=== PATIENT | female | born 1990 | race Caucasian/White ===

== ENCOUNTER 2025-08-11 20:54 | Inpatient (IN) ==
[2025-08-11] MEDS: OPTIRAY 320 125ml IV ONE (21:40)
[2025-08-11 21:42] LABS: Hematocrit (blood only) 33.3 % (37.0-47.0); Hemoglobin 10.8 g/dl (12.0-16.0); Immature Granulocytes # (auto) 0.04 K/uL (0.01-0.20); Immature Granulocytes % (auto) 0.4 %; Mean Corpuscular Hemoglobin 24.8 pg (25.0-34.0); Mean Corpuscular Volume 76.4 fL (80.0-100.0); Platelet Count 356 K/uL (130-400); RDW Standard Deviation 42.8 fL (36.4-46.3); Red Blood Count 4.36 M/uL (4.20-5.40); White Blood Count 10.43 K/ul (4.8-10.8)
--- NOTE | 2025-08-11 21:59 | CT Scan Report ---
Exam(s): CT HEAD Without Contrast EXAM: CT Head Without Intravenous Contrast CLINICAL HISTORY: neuro deficit, acute stroke suspected. TECHNIQUE: Axial computed tomography images of the head/brain without intravenous contrast. CTDI is 37 mGy and DLP is 546 mGy-cm. Automated exposure control was utilized for the study. A dose lowering technique was utilized adhering to the principles of ALARA. COMPARISON: No relevant prior studies available. FINDINGS: Brain: No intracranial hemorrhage. No significant mass effect. No cortical infarct. No significant white matter disease. Ventricles: Unremarkable. No ventriculomegaly. Bones/joints: Unremarkable. No acute fracture. Soft tissues: Unremarkable. Sinuses: Unremarkable as visualized. No acute sinusitis. Mastoid air cells: Unremarkable as visualized. No mastoid effusion. IMPRESSION: No acute intracranial process identified. Communications: Call Doctor Stroke Electronically signed by: Medardo Sung MD 08/11/25 21:58 PM
[2025-08-11 22:01] LABS: Alanine Aminotransferase 13 U/L (7-52); Albumin Globulin Ratio 1.3 (0.9-2); Alkaline Phosphatase 39 U/L (34-104); Anion Gap 7 (3-11); Bilirubin,Total 0.3 mg/dl (0.2-1.0); Blood Urea Nitrogen 17 mg/dl (6-23); Calcium 8.8 mg/dl (8.6-10.3); Carbon Dioxide 25 mmol/L (21-32); Chloride 108 mmol/L (98-107); Creatinine Clr Calc Pharmacy 87.6 ml/min; Globulin 2.9 gm/dl (2.5-4.0); Glucose 85 mg/dl (70-99(Fasting)); Magnesium 2.0 mg/dl (1.7-2.4); Potassium 3.2 mmol/L (3.5-5.1); Sodium 140 mmol/L (136-145); Total Protein 6.8 gm/dl (6.0-8.3)
--- NOTE | 2025-08-11 22:01 | CT Scan Report ---
Exam(s): CTA HEAD With Contrast IV Amt: 115 ml optiray 320 EXAM: CT Angiography Head With Intravenous Contrast CLINICAL HISTORY: neuro deficit, acute stroke suspected. TECHNIQUE: Axial computed tomographic angiography images of the head with intravenous contrast. CTDI is 37 mGy and DLP is 546 mGy-cm. Automated exposure control was utilized for the study. A dose lowering technique was utilized adhering to the principles of ALARA. MIP reconstructed images were created and reviewed. CONTRAST: Patient received 115 ml optiray 320 of IV contrast COMPARISON: No relevant prior studies available. FINDINGS: Limitations: There is motion artifact, which degrades image quality on multiple image slices. Right internal carotid artery: No acute findings. Intracranial segment is patent with no significant stenosis. No aneurysm. Right anterior cerebral artery: Unremarkable. No occlusion or significant stenosis. No aneurysm. Right middle cerebral artery: Unremarkable. No occlusion or significant stenosis. No aneurysm. Right posterior cerebral artery: Incidental right posterior communicating artery identified. The right posterior cerebral artery is patent. No occlusion or significant stenosis. No aneurysm. Right vertebral artery: Unremarkable as visualized. Left internal carotid artery: No acute findings. Intracranial segment is patent with no significant stenosis. No aneurysm. Left anterior cerebral artery: Unremarkable. No occlusion or significant stenosis. No aneurysm. Left middle cerebral artery: Unremarkable. No occlusion or significant stenosis. No aneurysm. Left posterior cerebral artery: There is a origin of the left posterior cerebral artery via the left posterior communicating artery. The left posterior cerebral artery is patent. No occlusion or significant stenosis. No aneurysm. Left vertebral artery: Unremarkable as visualized. Basilar artery: Unremarkable. No occlusion or significant stenosis. No aneurysm. Brain: No abnormal parenchymal enhancement identified. IMPRESSION: Accounting for mild motion artifact, negative intracranial CTA examination. Communications: Call Doctor Stroke Electronically signed by: Medardo Sung MD 08/11/25 22:00 PM
--- NOTE | 2025-08-11 22:04 | CT Scan Report ---
Exam(s): CTA NECK With Contrast IV Amt: 115 ml optiray 320 EXAM: CT Angiography Neck With Intravenous Contrast CLINICAL HISTORY: neuro deficit, acute stroke suspected. TECHNIQUE: Routine carotid CT angiography protocol was performed with intravenous contrast. NASCET criteria using the distal ICAs for comparison were used for evaluation of stenoses. CTDI is 36 mGy and DLP is 546 mGy-cm. Automated exposure control was utilized for the study. A dose lowering technique was utilized adhering to the principles of ALARA. MIP reconstructed images were created and reviewed. CONTRAST: Patient received 115 ml optiray 320 of IV contrast COMPARISON: None. FINDINGS: VASCULATURE: Right common carotid artery: Unremarkable. No occlusion or significant stenosis. No dissection. Right internal carotid artery: Unremarkable. Extracranial segment is patent with no occlusion or significant stenosis. No dissection. Right external carotid artery: Unremarkable. No occlusion. Right vertebral artery: The right vertebral artery is minimally dominant in size. No focal stenosis, dissection or occlusion. Left common carotid artery: Unremarkable. No occlusion or significant stenosis. No dissection. Left internal carotid artery: Unremarkable. Extracranial segment is patent with no occlusion or significant stenosis. No dissection. Left external carotid artery: Unremarkable. No occlusion. Left vertebral artery: Unremarkable. No occlusion or significant stenosis. No dissection. Brachiocephalic and subclavian arteries: There is a normal branching pattern of the proximal great vessels. No ostial stenosis or occlusion. Aorta: The aortic arch is patent. No dissection or aneurysm. NECK: Bones/joints: Incidental posterior surgical hardware involving the thoracic spine from T3 inferiorly. No acute fracture. Soft tissues: Unremarkable. Lung apices: Clear. CAROTID STENOSIS REFERENCE USING NASCET CRITERIA: % ICA stenosis = (1 - narrowest ICA diameter/diameter of distal cervical ICA) x 100. Mild - <50% stenosis. Moderate - 50-69% stenosis. Severe - 70-94% stenosis. Near occlusion - 95-99% stenosis. Occluded - 100% stenosis. IMPRESSION: Negative cervical CTA examination. Communications: Call Doctor Stroke Electronically signed by: Medardo Sung MD 08/11/25 22:03 PM
[2025-08-11 22:12] LABS: INR 1.0 (0.9-1.1); Partial Thromboplastin Time 27 Seconds (21-31); Prothrombin Time 10.9 Seconds (9.0-12.0)
[2025-08-11 23:17] LABS: Influenza A virus by PCR Negative (Neg); Influenza B virus by PCR Negative (Neg); SARS CoV2 RNA(COVID-19) Ceph NEGATIVE (Negative)
--- NOTE | 2025-08-11 23:17 | Emergency Department Note ---
History of Present Illness General Chief complaint: Neuro Symptoms/Deficit Stated complaint: RT SIDE NUMBNESS, PAIN, CONCERN ABOUT STROKE Time Seen by Provider: 08/11/25 21:11 History of Present Illness Provider complaint: Right-sided weakness numbness Maximum Pain Intensity: 6 34-year-old female presents emergency department for right-sided weakness and numbness. Patient states that she started having a headache 1 hour ago and started getting weakness and numbness in her right side. She reports right- sided chest pain. No difficulty breathing. No chance of . 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 Home Medications Medication Instructions Recorded Confirmed Type atomoxetine 40 mg capsule 40 mg PO DAILY 08/11/25 08/11/25 History Allergies Allergy/AdvReac Type Severity Reaction Status Date / Time metoclopramide [From Reglan] AdvReac Intermediate HYPERACTIVE Verified 08/11/25 22:34 Past Med/Surg History Problem List (Updated 08/11/25 @ 23:20 by Joni Portillo MD) Brain TIA (Acute) Medical History No pertinent family history No pertinent past medical history Surgical History No pertinent past surgical history Social History Smoking Status: Current every day smoker Tobacco Type: Cigarettes Preferred Language: [place] Feels Safe at Home: Yes Physical Exam Vital Signs Vital Signs - 24 hr 08/11/25 20:57 08/11/25 21:21 08/11/25 21:52 Temperature 36.5 C Temperature Source Temporal Artery Scan Pulse Rate 83 81 Pulse Rate [Apical] Pulse Rate from SpO2 Sensor Pulse Rhythm [Apical] Pulse Strength [Apical] Respiratory Rate 18 Respiratory Effort / Characteristics Non-Labored Spontaneous Respiratory Depth Normal Respiratory Pattern Regular Blood Pressure 129/84 Blood Pressure [Right Arm] Blood Pressure Mean 99 Blood Pressure Mean [Right Arm] Blood Pressure Position Sitting Blood Pressure Position [Right Arm] Pulse Oximetry 96 99 Oxygen Delivery Method Room Air Room Air Sepsis Recent Fever Within 48 Hours No Sepsis New/Unexplained Change in Mental Status N/A Sepsis Action Taken by Nursing No Action Required 08/11/25 21:52 08/11/25 22:03 08/11/25 22:15 Temperature Temperature Source Pulse Rate 85 73 Pulse Rate [Apical] 88 Pulse Rate from SpO2 Sensor 73 Pulse Rhythm [Apical] Regular Pulse Strength [Apical] Normal Respiratory Rate 22 19 15 Respiratory Effort / Characteristics Non-Labored Spontaneous Respiratory Depth Normal Respiratory Pattern Regular Blood Pressure 159/120 H 134/90 Blood Pressure [Right Arm] 155/94 H Blood Pressure Mean 133 111 Blood Pressure Mean [Right Arm] 114 Blood Pressure Position Blood Pressure Position [Right Arm] Lying Pulse Oximetry 98 97 98 Oxygen Delivery Method Room Air Sepsis Recent Fever Within 48 Hours Sepsis New/Unexplained Change in Mental Status Sepsis Action Taken by Nursing 08/11/25 22:30 Temperature Temperature Source Pulse Rate 71 Pulse Rate [Apical] Pulse Rate from SpO2 Sensor 72 Pulse Rhythm [Apical] Pulse Strength [Apical] Respiratory Rate 16 Respiratory Effort / Characteristics Respiratory Depth Respiratory Pattern Blood Pressure 135/85 Blood Pressure [Right Arm] Blood Pressure Mean 105 Blood Pressure Mean [Right Arm] Blood Pressure Position Blood Pressure Position [Right Arm] Pulse Oximetry 99 Oxygen Delivery Method Sepsis Recent Fever Within 48 Hours Sepsis New/Unexplained Change in Mental Status Sepsis Action Taken by Nursing Physical Exam GENERAL: oriented to person, place, and time. appears well-developed and well- nourished. HENT: Exam performed. - Head: Normocephalic and atraumatic. EYES: Conjunctivae and EOM are normal. Right eye exhibits no discharge. Left eye exhibits no discharge. No scleral icterus. NECK: Normal range of motion. Neck supple. No JVD present. CV: Normal rate, regular rhythm, normal heart sounds and intact distal pulses. There is no peripheral edema. Palpable radial pulses bue. PULM/CHEST: Effort normal and breath sounds normal. No respiratory distress. No stridor. no wheezes. no rales. ABD: The abdomen is soft. There is no tenderness. NEURO: NIHSS: 3 (6b:1, 7:1, 8:1) Course Course 2110: The patient was evaluated in room B7. A complete history and physical exam was performed Cardiac monitoring: An order was placed for continuous cardiac monitoring. The monitor shows a rate of 70 with sinus rhythm interpreted by oh Code stroke: The patient. 2204: Dr. Randle evaluating patient on telestroke cart. Received call from radiology CT head CT angio head negative. CT angio neck appears negative but formal report is pending. 2211: Vital signs stable. Patient evaluated by Dr. Jer Mendoza telestroke. He states patient is not a TNKase candidate. He recommends MRI for the patient that can be done on the inpatient unit. Patient is in agreement to stay and be admitted for further workup and neurology evaluation. Administered Medications Discontinued Medications Ioversol (Optiray 320 125ml) 115 ml IV ONCE ONE Stop: 08/11/25 21:41 Last Admin: 08/11/25 21:40 Dose: 115 ml Documented By: OTTO Medical Decision Making Laboratory Data Attestation: I reviewed the patient's lab results. 08/11/25 21:25 08/11/25 21:25 Lab Results 08/11/25 08/11/25 08/11/25 Range/Units 21:25 21:33 22:28 WBC 10.43 (4.8-10.8) K/ul RBC 4.36 (4.20-5.40) M/uL Hgb 10.8 L (12.0-16.0) g/dl POC Hgb 12.2 (12.0-16.0) g/dl Hct 33.3 L (37.0-47.0) % POC Hct 36 L (37-47) % MCV 76.4 L (80.0-100.0) fL MCH 24.8 L (25.0-34.0) pg MCHC 32.4 (32.0-36.0) g/dL RDW Std Deviation 42.8 (36.4-46.3) fL RDW Coeff of Ximena 15.4 H (11.5-14.5) % Plt Count 356 (130-400) K/uL MPV 9.2 L (9.4-12.4) fL Immature Gran % (Auto) 0.4 % Neut % (Auto) 67.8 % Lymph % (Auto) 24.0 % [place] % (Auto) 6.0 % Eos % (Auto) 1.3 % Baso % (Auto) 0.5 % Neut # (Auto) 7.07 H (1.40-6.50) K/uL Lymph # (Auto) 2.50 (1.20-3.40) K/uL [place] # (Auto) 0.63 H (0.11-0.59) K/uL Eos # (Auto) 0.14 (0.00-0.50) K/uL Baso # (Auto) 0.05 (0.00-0.20) K/uL Immature Gran # (Auto) 0.04 (0.01-0.20) K/uL PT 10.9 (9.0-12.0) Seconds INR 1.0 (0.9-1.1) APTT 27 (21-31) Seconds PTT Ratio 1.0 POC Sodium 141 (135-144) mmol/L Sodium 140 (136-145) mmol/L POC Potassium 3.2 L (3.3-5.0) mmol/L Potassium 3.2 L (3.5-5.1) mmol/L POC Chloride 108 (101-112) mmol/L Chloride 108 H (98-107) mmol/L Carbon Dioxide 25 (21-32) mmol/L POC Total CO2 23 L (24-31) mmol/L Anion Gap 7 (3-11) POC Anion Gap 15.0 L (16-25) mmol/L POC BUN 17 (7-18) mg/dl BUN 17 (6-23) mg/dl Creatinine 0.92 (0.6-1.2) mg/dl POC Creatinine 1.0 (0.6-1.3) mg/dl Est Cr Clr Drug Dosing 87.6 ml/min eGFR 82.76 BUN/Creatinine Ratio 18.5 (10-20) Glucose 85 (70-99(Fasting)) mg/dl POC Glucose (other) 87 (70-99) mg/dl Calcium 8.8 (8.6-10.3) mg/dl POC Ioniz Calcium Edilson 1.18 (1.12-1.32) mmol/l Magnesium 2.0 (1.7-2.4) mg/dl Total Bilirubin 0.3 (0.2-1.0) mg/dl AST 16 (13-39) U/L ALT 13 (7-52) U/L Alkaline Phosphatase 39 (34-104) U/L Troponin I High Sens < 2.3 (0-14) pg/ml Total Protein 6.8 (6.0-8.3) gm/dl Albumin 3.9 (3.4-5.0) gm/dl Globulin 2.9 (2.5-4.0) gm/dl Albumin/Globulin Ratio 1.3 (0.9-2) HCG, Quant < 1 mIU/ml Ethyl Alcohol mg/dL < 10.0 (<10.0) mg/dl SARS-CoV-2 (PCR) (Negative) Influenza Type A (PCR) (Neg) Influenza Type B (PCR) (Neg) RSV (RT-PCR) (Neg) 08/11/25 Range/Units 22:30 WBC (4.8-10.8) K/ul RBC (4.20-5.40) M/uL Hgb (12.0-16.0) g/dl POC Hgb (12.0-16.0) g/dl Hct (37.0-47.0) % POC Hct (37-47) % MCV (80.0-100.0) fL MCH (25.0-34.0) pg MCHC (32.0-36.0) g/dL RDW Std Deviation (36.4-46.3) fL RDW Coeff of Ximena (11.5-14.5) % Plt Count (130-400) K/uL MPV (9.4-12.4) fL Immature Gran % (Auto) % Neut % (Auto) % Lymph % (Auto) % [place] % (Auto) % Eos % (Auto) % Baso % (Auto) % Neut # (Auto) (1.40-6.50) K/uL Lymph # (Auto) (1.20-3.40) K/uL [place] # (Auto) (0.11-0.59) K/uL Eos # (Auto) (0.00-0.50) K/uL Baso # (Auto) (0.00-0.20) K/uL Immature Gran # (Auto) (0.01-0.20) K/uL PT (9.0-12.0) Seconds INR (0.9-1.1) APTT (21-31) Seconds PTT Ratio POC Sodium (135-144) mmol/L Sodium (136-145) mmol/L POC Potassium (3.3-5.0) mmol/L Potassium (3.5-5.1) mmol/L POC Chloride (101-112) mmol/L Chloride (98-107) mmol/L Carbon Dioxide (21-32) mmol/L POC Total CO2 (24-31) mmol/L Anion Gap (3-11) POC Anion Gap (16-25) mmol/L POC BUN (7-18) mg/dl BUN (6-23) mg/dl Creatinine (0.6-1.2) mg/dl POC Creatinine (0.6-1.3) mg/dl Est Cr Clr Drug Dosing ml/min eGFR BUN/Creatinine Ratio (10-20) Glucose (70-99(Fasting)) mg/dl POC Glucose (other) (70-99) mg/dl Calcium (8.6-10.3) mg/dl POC Ioniz Calcium Edilson (1.12-1.32) mmol/l Magnesium (1.7-2.4) mg/dl Total Bilirubin (0.2-1.0) mg/dl AST (13-39) U/L ALT (7-52) U/L Alkaline Phosphatase (34-104) U/L Troponin I High Sens (0-14) pg/ml Total Protein (6.0-8.3) gm/dl Albumin (3.4-5.0) gm/dl Globulin (2.5-4.0) gm/dl Albumin/Globulin Ratio (0.9-2) HCG, Quant mIU/ml Ethyl Alcohol mg/dL (<10.0) mg/dl SARS-CoV-2 (PCR) NEGATIVE (Negative) Influenza Type A (PCR) Negative (Neg) Influenza Type B (PCR) Negative (Neg) RSV (RT-PCR) Negative (Neg) Imaging Data Radiologist's Impression: Head CT 08/11/25 21:22 CR Exam(s): CT HEAD Without Contrast EXAM: CT Head Without Intravenous Contrast CLINICAL HISTORY: neuro deficit, acute stroke suspected. TECHNIQUE: Axial computed tomography images of the head/brain without intravenous contrast. CTDI is 37 mGy and DLP is 546 mGy-cm. Automated exposure control was utilized for the study. A dose lowering technique was utilized adhering to the principles of ALARA. COMPARISON: No relevant prior studies available. FINDINGS: Brain: No intracranial hemorrhage. No significant mass effect. No cortical infarct. No significant white matter disease. Ventricles: Unremarkable. No ventriculomegaly. Bones/joints: Unremarkable. No acute fracture. Soft tissues: Unremarkable. Sinuses: Unremarkable as visualized. No acute sinusitis. Mastoid air cells: Unremarkable as visualized. No mastoid effusion. IMPRESSION: No acute intracranial process identified. Communications: Call Doctor Stroke Electronically signed by: Medardo Sung MD 08/11/25 21:58 PM Head CTA 08/11/25 21:22 CR Exam(s): CTA HEAD With Contrast IV Amt: 115 ml optiray 320 EXAM: CT Angiography Head With Intravenous Contrast CLINICAL HISTORY: neuro deficit, acute stroke suspected. TECHNIQUE: Axial computed tomographic angiography images of the head with intravenous contrast. CTDI is 37 mGy and DLP is 546 mGy-cm. Automated exposure control was utilized for the study. A dose lowering technique was utilized adhering to the principles of ALARA. MIP reconstructed images were created and reviewed. CONTRAST: Patient received 115 ml optiray 320 of IV contrast COMPARISON: No relevant prior studies available. FINDINGS: Limitations: There is motion artifact, which degrades image quality on multiple image slices. Right internal carotid artery: No acute findings. Intracranial segment is patent with no significant stenosis. No aneurysm. Right anterior cerebral artery: Unremarkable. No occlusion or significant stenosis. No aneurysm. Right middle cerebral artery: Unremarkable. No occlusion or significant stenosis. No aneurysm. Right posterior cerebral artery: Incidental right posterior communicating artery identified. The right posterior cerebral artery is patent. No occlusion or significant stenosis. No aneurysm. Right vertebral artery: Unremarkable as visualized. Left internal carotid artery: No acute findings. Intracranial segment is patent with no significant stenosis. No aneurysm. Left anterior cerebral artery: Unremarkable. No occlusion or significant stenosis. No aneurysm. Left middle cerebral artery: Unremarkable. No occlusion or significant stenosis. No aneurysm. Left posterior cerebral artery: There is a origin of the left posterior cerebral artery via the left posterior communicating artery. The left posterior cerebral artery is patent. No occlusion or significant stenosis. No aneurysm. Left vertebral artery: Unremarkable as visualized. Basilar artery: Unremarkable. No occlusion or significant stenosis. No aneurysm. Brain: No abnormal parenchymal enhancement identified. IMPRESSION: Accounting for mild motion artifact, negative intracranial CTA examination. Communications: Call Doctor Stroke Electronically signed by: Medardo Sung MD 08/11/25 22:00 PM Neck CTA 08/11/25 21:22 CR Exam(s): CTA NECK With Contrast IV Amt: 115 ml optiray 320 EXAM: CT Angiography Neck With Intravenous Contrast CLINICAL HISTORY: neuro deficit, acute stroke suspected. TECHNIQUE: Routine carotid CT angiography protocol was performed with intravenous contrast. NASCET criteria using the distal ICAs for comparison were used for evaluation of stenoses. CTDI is 36 mGy and DLP is 546 mGy-cm. Automated exposure control was utilized for the study. A dose lowering technique was utilized adhering to the principles of ALARA. MIP reconstructed images were created and reviewed. CONTRAST: Patient received 115 ml optiray 320 of IV contrast COMPARISON: None. FINDINGS: VASCULATURE: Right common carotid artery: Unremarkable. No occlusion or significant stenosis. No dissection. Right internal carotid artery: Unremarkable. Extracranial segment is patent with no occlusion or significant stenosis. No dissection. Right external carotid artery: Unremarkable. No occlusion. Right vertebral artery: The right vertebral artery is minimally dominant in size. No focal stenosis, dissection or occlusion. Left common carotid artery: Unremarkable. No occlusion or significant stenosis. No dissection. Left internal carotid artery: Unremarkable. Extracranial segment is patent with no occlusion or significant stenosis. No dissection. Left external carotid artery: Unremarkable. No occlusion. Left vertebral artery: Unremarkable. No occlusion or significant stenosis. No dissection. Brachiocephalic and subclavian arteries: There is a normal branching pattern of the proximal great vessels. No ostial stenosis or occlusion. Aorta: The aortic arch is patent. No dissection or aneurysm. NECK: Bones/joints: Incidental posterior surgical hardware involving the thoracic spine from T3 inferiorly. No acute fracture. Soft tissues: Unremarkable. Lung apices: Clear. CAROTID STENOSIS REFERENCE USING NASCET CRITERIA: % ICA stenosis = (1 - narrowest ICA diameter/diameter of distal cervical ICA) x 100. Mild - <50% stenosis. Moderate - 50-69% stenosis. Severe - 70-94% stenosis. Near occlusion - 95-99% stenosis. Occluded - 100% stenosis. IMPRESSION: Negative cervical CTA examination. Communications: Call Doctor Stroke Electronically signed by: Medardo Sung MD 08/11/25 22:03 PM ECG Data Attestation: I personally reviewed and interpreted this ECG as follows: Rate (beats per minute): 71 Rhythm: + normal sinus ECG Intervals/blocks: + Normal QRS, + Normal MT and + Normal QT-c ECG ST segments: + Normal ST segments Additional Comments: Baseline artifact and wander MDM Narrative 2110: The patient was evaluated in room B7. A complete history and physical exam was performed Cardiac monitoring: An order was placed for continuous cardiac monitoring. The monitor shows a rate of 70 with sinus rhythm interpreted by me Code stroke: The patient. 2204: Dr. Randle evaluating patient on telestroke cart. Received call from radiology CT head CT angio head negative. CT angio neck appears negative but formal report is pending. 2211: Vital signs stable. Patient evaluated by Dr. Randle [place] teleroke. He states patient is not a TNKase candidate. He recommends MRI for the patient that can be done on the inpatient unit. Patient is in agreement to stay and be admitted for further workup and neurology evaluation. Impression & Plan Brain TIA Discharge Plan Visit Data Chief Complaint: Neuro Symptoms/Deficit Stated Complaint: RT SIDE NUMBNESS, PAIN, CONCERN ABOUT STROKE ED Provider: Joni Portillo Discharge Problem: Brain TIA Patient Disposition: Admitted As Inpatient Condition: Fair Forms Stand Alone Forms: My [employer] Prescriptions Prescriptions: No Action atomoxetine [Strattera] 40 mg Capsule 40 mg PO DAILY Rx Instructions: PER PT'S SO "JUST GOT TODAY, DID NOT START TAKING". Referrals Referrals: PCP,NO [Primary Care Provider] -
--- NOTE | 2025-08-11 23:22 | History & Physical Report ---
Date of Service August 11, 2025 Assessment & Plan (1) Brain TIA: (2) No pertinent family history: (3) No pertinent past medical history: (4) Right sided weakness: (5) Heartburn: Plan #Right sided pain and weakness/ TIA/ Stroke like symptoms: -Right sided pain and weakness with stroke like symptoms alomg with heartburn. - Head and neck CTA, Head CT shows no stenosis, hemorrhage or infarction. - Ordered head MRI w/o contrast to r/o any ischemia to determine if the deficit is vascular or any other cause such as demyelinating disease, venous sinus thrombosis, small vessel vasculitis. - Troponin negative. - Will not consider any antithrombotic therapy for now because of unclear diagnosis. - H/H 10.8/33.3, Will order Iron panel . - Will monitor deficits progression. #ADHD: -Continue Atomoxetine. History of Present Illness Chief Complaint: Right sided body pain and heavinessx 1 day Left sided heartburn x 1 day Primary Care Provider: NO PCP 34 yrs old female with PMH of adhd presents to the ED with complaints of Rt sided bosy pain and heaviness since this morning after she woke up. She started feeling weak and heavy on the right side of her body along with the pain. Reports being foggy, tired and had hard time opening both of her eyes. She also reports having heartburn on the left side of chest along with nausea. She drove herself to the hospital after her weakness and pain kept getting increased. Also couldn't process what she was trying to say at one time.She reported feeling very exhausted on presentation but could walk to the bathroom with decreased ability to focus. No known family history because she was adopted. No H/o chest pain, trauma, abnormal body movement, migraines hx, recent illness. Allergies Allergy/AdvReac Type Severity Reaction Status Date / Time metoclopramide [From Reglan] AdvReac Intermediate HYPERACTIVE Verified 08/11/25 22:34 Home Medications Medication Instructions Recorded Confirmed Type atomoxetine 40 mg capsule 40 mg PO DAILY 08/11/25 08/11/25 History Past Med/Surg History Problem List Heartburn Right sided weakness Brain TIA (Acute) Medical History No pertinent family history No pertinent past medical history Surgical History No pertinent past surgical history Social History Smoking Status: Current every day smoker Tobacco Type: Cigarettes Cigarettes Per Day: 1/2 pack week; Second Hand Exposure: No; Do You Dip or Chew Tobacco: No; Tobacco Cessation Education Requested by Patient: No Hx Alcohol Use: No Hx Substance Use: No Preferred Language: Mongolian Communication Ability: Effective Rehabilitation Physician Required: No Beliefs That Will Affect Care: None Current Living Situation: Spouse Other Information That Helps Us Care for You: No Feels Safe at Home: Yes Safety Concerns: Feels Safe At This Time Assistive Devices: Denture - Upper, Denture - Lower and Glasses Review of Systems Review of Systems: As per HPI. Physical Exam Physical Exam: GENERAL: oriented to person, place, and time. appears well-developed and well- nourished. HENT: Exam performed. - Head: Normocephalic and atraumatic. -EYES: Left eye ptosis. -NECK: Normal range of motion. Neck supple. No JVD present. CV: Normal rate, regular rhythm, normal heart sounds and intact distal pulses. There is no peripheral edema. Palpable radial pulses bue. PULM/CHEST: Effort normal and breath sounds normal. No respiratory distress. No stridor. no wheezes. no rales. ABD: The abdomen is soft. There is no tenderness. Cranial nerves: Sensory test intact. Pupillary reflex intact on B/l eyes. Finger to nose test, visual field test- couldn't perform d/t inability to focus.EOM normal. B/l equal facial symmetry. Romberg test negative. Gait normal. Muscle strength 3/5 in right extremities. Knee reflex normal. Results & Data Results & Data Vital Signs (Past 12 Hours) Vital Signs Temp Pulse Pulse Resp BP BP Pulse Ox 08/11/25 22:30 71 16 135/85 99 08/11/25 22:15 73 15 134/90 98 08/11/25 22:03 85 19 159/120 H 97 08/11/25 21:52 88 22 155/94 H 98 08/11/25 21:52 99 08/11/25 21:21 81 08/11/25 20:57 36.5 C 83 18 129/84 96 O2 Del Method 08/11/25 22:30 08/11/25 22:15 08/11/25 22:03 08/11/25 21:52 Room Air 08/11/25 21:52 Room Air 08/11/25 21:21 08/11/25 20:57 Room Air Laboratory Results Laboratory Results WBC 8.81 K/ul (4.8-10.8) 08/12/25 00:44 RBC 4.35 M/uL (4.20-5.40) 08/12/25 00:44 Hgb 10.8 g/dl (12.0-16.0) L 08/12/25 00:44 POC Hgb 12.2 g/dl (12.0-16.0) 08/11/25 21:33 Hct 33.2 % (37.0-47.0) L 08/12/25 00:44 POC Hct 36 % (37-47) L 08/11/25 21:33 MCV 76.3 fL (80.0-100.0) L 08/12/25 00:44 MCH 24.8 pg (25.0-34.0) L 08/12/25 00:44 MCHC 32.5 g/dL (32.0-36.0) 08/12/25 00:44 RDW Std Deviation 42.2 fL (36.4-46.3) 08/12/25 00:44 RDW Coeff of Ximena 15.4 % (11.5-14.5) H 08/12/25 00:44 Plt Count 356 K/uL (130-400) 08/12/25 00:44 MPV 9.4 fL (9.4-12.4) 08/12/25 00:44 Immature Gran % (Auto) 0.3 % 08/12/25 00:44 Neut % (Auto) 64.3 % 08/12/25 00:44 Lymph % (Auto) 26.8 % 08/12/25 00:44 Pondera % (Auto) 6.8 % 08/12/25 00:44 Eos % (Auto) 1.1 % 08/12/25 00:44 Baso % (Auto) 0.7 % 08/12/25 00:44 Neut # (Auto) 5.66 K/uL (1.40-6.50) 08/12/25 00:44 Lymph # (Auto) 2.36 K/uL (1.20-3.40) 08/12/25 00:44 Pondera # (Auto) 0.60 K/uL (0.11-0.59) H 08/12/25 00:44 Eos # (Auto) 0.10 K/uL (0.00-0.50) 08/12/25 00:44 Baso # (Auto) 0.06 K/uL (0.00-0.20) 08/12/25 00:44 Immature Gran # (Auto) 0.03 K/uL (0.01-0.20) 08/12/25 00:44 PT 10.9 Seconds (9.0-12.0) 08/11/25 21:25 INR 1.0 (0.9-1.1) 08/11/25 21: APTT 27 Seconds (21-31) 08/11/25 21: PTT Ratio 1.0 08/11/25 21:25 POC Sodium 141 mmol/L (135-144) 08/11/25 21: Sodium 140 mmol/L (136-145) 08/11/25 21:25 POC Potassium 3.2 mmol/L (3.3-5.0) L 08/11/25 21: Potassium 3.2 mmol/L (3.5-5.1) L 08/11/25 21:25 POC Chloride 108 mmol/L (101-112) 08/11/25 21: Chloride 108 mmol/L (98-107) H 08/11/25 21:25 Carbon Dioxide 25 mmol/L (21-32) 08/11/25 21:25 POC Total CO2 23 mmol/L (24-31) L 08/11/25 21:33 Anion Gap 7 (3-11) 08/11/25 21:25 POC Anion Gap 15.0 mmol/L (16-25) L 08/11/25 21:33 POC BUN 17 mg/dl (7-18) 08/11/25 21:33 BUN 17 mg/dl (6-23) 08/11/25 21:25 Creatinine 0.92 mg/dl (0.6-1.2) 08/11/25 21:25 POC Creatinine 1.0 mg/dl (0.6-1.3) 08/11/25 21:33 Est Cr Clr Drug Dosing 87.6 ml/min 08/11/25 21: eGFR 82.76 08/11/25 21: BUN/Creatinine Ratio 18.5 (10-20) 08/11/25 21: Glucose 85 mg/dl (70-99(Fasting)) 08/11/25 21: POC Glucose 93 mg/dl (70-99) 08/12/25 02:20 POC Glucose (other) 87 mg/dl (70-99) 08/11/25 21:33 Calcium 8.8 mg/dl (8.6-10.3) 08/11/25: POC Ioniz Calcium Edilson 1.18 mmol/l (1.12-1.32) 08/11/25 21: Magnesium 2.0 mg/dl (1.7-2.4) 08/11/25: Total Bilirubin 0.3 mg/dl (0.2-1.0) 08/11/25 21: AST 16 U/L (13-39) 08/11/25 21: ALT 13 U/L (7-52) 08/11/25: Alkaline Phosphatase 39 U/L (34-104) 08/11/25: Troponin I High Sens < 2.3 pg/ml (0-14) 08/11/25: Total Protein 6.8 gm/dl (6.0-8.3) 08/11/25: Albumin 3.9 gm/dl (3.4-5.0) 08/11/25: Globulin 2.9 gm/dl (2.5-4.0) 08/11/25: Albumin/Globulin Ratio 1.3 (0.9-2) 08/11/25: HCG, Quant < 1 mIU/ml 08/11/25 21: Urine Test Negative (Negative) 08/11/25 23:00 Urine Opiates Screen Neg (Neg) 08/11/25 22:55 Ur Methadone, Qual Neg (Neg) 08/11/25 22:55 Urine Fentanyl Screen Neg (Neg) 08/11/25 22:55 Urine Barbiturates Neg (Neg) 08/11/25 22:55 Ur Phencyclidine (PCP) Neg (Neg) 08/11/25 22:55 U Amphetamin/Meth Scrn Neg (Neg) 08/11/25 22:55 MDMA (Ecstasy) Screen Neg (Neg) 08/11/25 22:55 U Benzodiazepines Scrn Neg (Neg) 08/11/25 22:55 Ur Cocaine Metabolite Neg (Neg) 08/11/25 22:55 U Marijuana (THC) Screen Neg (Neg) 08/11/25 22:55 Ethyl Alcohol mg/dL < 10.0 mg/dl (<10.0) 08/11/25 22:28 SARS-CoV-2 (PCR) NEGATIVE (Negative) 08/11/25 22:30 Influenza Type A (PCR) Negative (Neg) 08/11/25 22:30 Influenza Type B (PCR) Negative (Neg) 08/11/25 22:30 RSV (RT-PCR) Negative (Neg) 08/11/25 22:30 Blood Type A Positive 08/11/25 22:28 Antibody Screen NEGATIVE 08/11/25 22:28 Impressions Chest X-Ray 08/11/25 21:22 Exam(s): XR CXR 1 VIEW EXAM: XR Chest, 1 View CLINICAL HISTORY: neuro deficit, acute stroke suspected. TECHNIQUE: Frontal view of the chest. COMPARISON: No relevant prior studies available. FINDINGS: Lungs: No focal consolidation. The pulmonary vasculature demonstrates no significant radiographic abnormality. Pleural space: Unremarkable. No pneumothorax. No large pleural effusion. Heart: The cardiac silhouette is within normal limits, accounting for portable technique. Mediastinum: No significant abnormality identified. The trachea is midline. Bones/joints: Extensive surgical hardware throughout the thoracic spine with pedicle screws, paraspinal rods and laminar clips. Intact sternotomy wires. No acute osseous abnormality. IMPRESSION: No focal consolidation or acute cardiopulmonary process identified. Electronically signed by: Medardo Sung MD 08/11/25 23:[address] 08/11/25 21:22 CR Exam(s): CT HEAD Without Contrast EXAM: CT Head Without Intravenous Contrast CLINICAL HISTORY: neuro deficit, acute stroke suspected. TECHNIQUE: Axial computed tomography images of the head/brain without intravenous contrast. CTDI is 37 mGy and DLP is 546 mGy-cm. Automated exposure control was utilized for the study. A dose lowering technique was utilized adhering to the principles of ALARA. COMPARISON: No relevant prior studies available. FINDINGS: Brain: No intracranial hemorrhage. No significant mass effect. No cortical infarct. No significant white matter disease. Ventricles: Unremarkable. No ventriculomegaly. Bones/joints: Unremarkable. No acute fracture. Soft tissues: Unremarkable. Sinuses: Unremarkable as visualized. No acute sinusitis. Mastoid air cells: Unremarkable as visualized. No mastoid effusion. IMPRESSION: No acute intracranial process identified. Communications: Call Doctor Stroke Electronically signed by: Medardo Sung MD 08/11/25 21:58 PM Head CTA 08/11/25 21:22 CR Exam(s): CTA HEAD With Contrast IV Amt: 115 ml optiray 320 EXAM: CT Angiography Head With Intravenous Contrast CLINICAL HISTORY: neuro deficit, acute stroke suspected. TECHNIQUE: Axial computed tomographic angiography images of the head with intravenous contrast. CTDI is 37 mGy and DLP is 546 mGy-cm. Automated exposure control was utilized for the study. A dose lowering technique was utilized adhering to the principles of ALARA. MIP reconstructed images were created and reviewed. CONTRAST: Patient received 115 ml optiray 320 of IV contrast COMPARISON: No relevant prior studies available. FINDINGS: Limitations: There is motion artifact, which degrades image quality on multiple image slices. Right internal carotid artery: No acute findings. Intracranial segment is patent with no significant stenosis. No aneurysm. Right anterior cerebral artery: Unremarkable. No occlusion or significant stenosis. No aneurysm. Right middle cerebral artery: Unremarkable. No occlusion or significant stenosis. No aneurysm. Right posterior cerebral artery: Incidental right posterior communicating artery identified. The right posterior cerebral artery is patent. No occlusion or significant stenosis. No aneurysm. Right vertebral artery: Unremarkable as visualized. Left internal carotid artery: No acute findings. Intracranial segment is patent with no significant stenosis. No aneurysm. Left anterior cerebral artery: Unremarkable. No occlusion or significant stenosis. No aneurysm. Left middle cerebral artery: Unremarkable. No occlusion or significant stenosis. No aneurysm. Left posterior cerebral artery: There is a origin of the left posterior cerebral artery via the left posterior communicating artery. The left posterior cerebral artery is patent. No occlusion or significant stenosis. No aneurysm. Left vertebral artery: Unremarkable as visualized. Basilar artery: Unremarkable. No occlusion or significant stenosis. No aneurysm. Brain: No abnormal parenchymal enhancement identified. IMPRESSION: Accounting for mild motion artifact, negative intracranial CTA examination. Communications: Call Doctor Stroke Electronically signed by: Medardo Sung MD 08/11/25 22:00 PM Neck CTA 08/11/25 21:22 CR Exam(s): CTA NECK With Contrast IV Amt: 115 ml optiray 320 EXAM: CT Angiography Neck With Intravenous Contrast CLINICAL HISTORY: neuro deficit, acute stroke suspected. TECHNIQUE: Routine carotid CT angiography protocol was performed with intravenous contrast. NASCET criteria using the distal ICAs for comparison were used for evaluation of stenoses. CTDI is 36 mGy and DLP is 546 mGy-cm. Automated exposure control was utilized for the study. A dose lowering technique was utilized adhering to the principles of ALARA. MIP reconstructed images were created and reviewed. CONTRAST: Patient received 115 ml optiray 320 of IV contrast COMPARISON: None. FINDINGS: VASCULATURE: Right common carotid artery: Unremarkable. No occlusion or significant stenosis. No dissection. Right internal carotid artery: Unremarkable. Extracranial segment is patent with no occlusion or significant stenosis. No dissection. Right external carotid artery: Unremarkable. No occlusion. Right vertebral artery: The right vertebral artery is minimally dominant in size. No focal stenosis, dissection or occlusion. Left common carotid artery: Unremarkable. No occlusion or significant stenosis. No dissection. Left internal carotid artery: Unremarkable. Extracranial segment is patent with no occlusion or significant stenosis. No dissection. Left external carotid artery: Unremarkable. No occlusion. Left vertebral artery: Unremarkable. No occlusion or significant stenosis. No dissection. Brachiocephalic and subclavian arteries: There is a normal branching pattern of the proximal great vessels. No ostial stenosis or occlusion. Aorta: The aortic arch is patent. No dissection or aneurysm. NECK: Bones/joints: Incidental posterior surgical hardware involving the thoracic spine from T3 inferiorly. No acute fracture. Soft tissues: Unremarkable. Lung apices: Clear. CAROTID STENOSIS REFERENCE USING NASCET CRITERIA: % ICA stenosis = (1 - narrowest ICA diameter/diameter of distal cervical ICA) x 100. Mild - <50% stenosis. Moderate - 50-69% stenosis. Severe - 70-94% stenosis. Near occlusion - 95-99% stenosis. Occluded - 100% stenosis. IMPRESSION: Negative cervical CTA examination. Communications: Call Doctor Stroke Electronically signed by: Medardo Sung MD 08/11/25 22:03 PM Supervising Physician Co-Signing Physician Notes Patient seen and examined, chart reviewed, case discussed with Dr. Britt and I agree with the assessment and plan as above. In brief, patient is a 34yo female with history of ADHD presenting with heaviness of right side of body - arm and leg as well as ptosis of the left eyelid. On exam she is afebrile, HD stable Skin - intact, no rash HEENT - MMM, Neck supple, +Ptosis of left eyelid. Patient having difficulty opening eyes bilaterally, fluttering eyelids. Having difficulty performing extra-occular muscle testing Heart - +S1/S2, regular Lungs - CTA Abd - +BS, soft, NT/ND Ext - no edema Neuro - patient AA&O x 4, +Ptosis of left eyelid, no nasolabial fold flattening or facial droop noted, speech clear and appropriate, sensation described as painful involving the right face V1, V2 and V3, sensation to light touch otherwise equal, MS diminished slightly in RUE and RLE with mild drift on exam, reflexes intact and equal bilaterally, unable to perfom [id number] testing Labs and images reviewed Assessment/Plan - physical exam incongruent, uncertain if this represents stroke -Check MRI -Check lipid panel and HgbA1C -Neuro checks and NIHSS per protocol -Consider Neuro consultaiton pending findings and exam -Remainder as above Resident Activity Tracking Resident Involvement: Resident Care Provided Care Provided: Adult Hospital Medicine
[2025-08-11] MEDS: ASPIRIN 81 MG CHEW PO STA (23:42)
[2025-08-11] MEDS: POTASSIUM CHLORIDE 10 MEQ TABCR PO STA (23:42)
--- NOTE | 2025-08-11 23:47 | XRay Report ---
Exam(s): XR CXR 1 VIEW EXAM: XR Chest, 1 View CLINICAL HISTORY: neuro deficit, acute stroke suspected. TECHNIQUE: Frontal view of the chest. COMPARISON: No relevant prior studies available. FINDINGS: Lungs: No focal consolidation. The pulmonary vasculature demonstrates no significant radiographic abnormality. Pleural space: Unremarkable. No pneumothorax. No large pleural effusion. Heart: The cardiac silhouette is within normal limits, accounting for portable technique. Mediastinum: No significant abnormality identified. The trachea is midline. Bones/joints: Extensive surgical hardware throughout the thoracic spine with pedicle screws, paraspinal rods and laminar clips. Intact sternotomy wires. No acute osseous abnormality. IMPRESSION: No focal consolidation or acute cardiopulmonary process identified. Electronically signed by: Medardo Sung MD 08/11/25 23:47 PM
[2025-08-11 23:54] LABS: Amphetamines+Metham, Urine Neg (Neg); MDMA (Ecstacy), Urine Neg (Neg); Marijuana, Urine Neg (Neg)
[2025-08-12] MEDS ORDERED: KETOROLAC TROMETHAMINE 15 MG/ML VIAL IV PRN (00:17)
[2025-08-12 01:04] LABS: Hematocrit (blood only) 33.2 % (37.0-47.0); Hemoglobin 10.8 g/dl (12.0-16.0); Immature Granulocytes # (auto) 0.03 K/uL (0.01-0.20); Immature Granulocytes % (auto) 0.3 %; Mean Corpuscular Hemoglobin 24.8 pg (25.0-34.0); Mean Corpuscular Volume 76.3 fL (80.0-100.0); Platelet Count 356 K/uL (130-400); RDW Standard Deviation 42.2 fL (36.4-46.3); Red Blood Count 4.35 M/uL (4.20-5.40); White Blood Count 8.81 K/ul (4.8-10.8)
[2025-08-12] MEDS ORDERED: PHARMACIST DISCHARGE MED REC CONSULT PRN (02:14)
[2025-08-12] MEDS ORDERED: MELATONIN 3 MG TAB PO PRN (02:14)
[2025-08-12] MEDS ORDERED: POLYETHYLENE (MIRALAX) 17 GM PACK PO PRN (02:14)
--- NOTE | 2025-08-12 03:08 | Billing Data ---
Date of Service August 11, 2025 Coding Level of Care Code 15318 INT INP/OBS CARE
[2025-08-12 04:20] LABS: Cholesterol 166.0 mg/dl (0-200); HDL Cholesterol 41.0 mg/dl; Triglycerides 50.0 mg/dl (0-150)
[2025-08-12 08:09] LABS: Hematocrit (blood only) 36.1 % (37.0-47.0); Hemoglobin 11.5 g/dl (12.0-16.0); Immature Granulocytes # (auto) 0.02 K/uL (0.01-0.20); Immature Granulocytes % (auto) 0.2 %; Mean Corpuscular Hemoglobin 24.4 pg (25.0-34.0); Mean Corpuscular Volume 76.5 fL (80.0-100.0); Platelet Count 346 K/uL (130-400); RDW Standard Deviation 42.7 fL (36.4-46.3); Red Blood Count 4.72 M/uL (4.20-5.40); White Blood Count 8.36 K/ul (4.8-10.8)
[2025-08-12 08:36] LABS: Anion Gap 4.0 (3-11); Blood Urea Nitrogen 12.0 mg/dl (6-23); Calcium 8.6 mg/dl (8.6-10.3); Carbon Dioxide 26.0 mmol/L (21-32); Chloride 111.0 mmol/L (98-107); Creatinine Clr Calc Pharmacy 97.5 ml/min; Iron 46.0 mcg/dl (35-150); Potassium 4.0 mmol/L (3.5-5.1); Sodium 141.0 mmol/L (136-145); Total Iron Binding Cap Calc 406.0 mcg/dl (250-450); Transferrin 290.0 mg/dl (200-360); Transferrin (FE) Percent Satur 11.0 % (15-50)
[2025-08-12 08:41] LABS: Hemoglobin A1C 5.3 % (4.5-5.6)
[2025-08-12] MEDS: ATOMOXETINE HCL 40 MG CAPSULE PO SCH (09:24)
--- NOTE | 2025-08-12 09:29 | Electrocardiogram Report ---
Test Reason : Blood Pressure : */* mmHG Vent. Rate : 71 BPM Atrial Rate : 71 BPM P-R Int : 142 ms QRS Dur : 96 ms QT Int : 392 ms P-R-T Axes : 25 64 34 degrees QTcB Int : 425 ms Normal sinus rhythm Normal ECG No previous ECGs available Confirmed by Isiah Wiggins ([id number]) on 08/12/2025 9:29:11 AM Referred By: REFERRED SELF Confirmed By: Isiah Wiggins
--- NOTE | 2025-08-12 09:31 | Magnetic Resonance Report ---
MRI OF THE BRAIN COMBO CLINICAL HISTORY: Right-sided numbness. Stroke like symptoms. COMPARISON STUDY: CT of the brain dated 08/11/2025 TECHNIQUE: MRI of the brain was performed utilizing various T1 and T2-weighted sequences in the axial , sagittal, and coronal planes. Contrast-enhanced sequences were acquired following the administratio n of 7 cc of Gadavist. FINDINGS: Brain parenchyma: The brain parenchyma is normal in appearance. There is no hemorrhage or mass effect . There is no restricted diffusion to suggest acute ischemia. No enhancing mass lesion is identified on the postcontrast images. Coronel-white matter differentiation is preserved. No extra-axial fluid florence ection is seen. The cerebellar tonsils are normal in configuration. Ventricles, sulci, and cisterns: Normal in configuration. Pituitary and sella: Unremarkable. Intracranial vasculature: Normal flow voids are maintained at the skull base. Orbits: The bony orbits are grossly intact. Orbital contents are normal in appearance. Sinuses and mastoids: There is mild mucosal thickening within the sphenoid sinuses. The remaining par anasal sinuses are clear. The mastoid air cells are well pneumatized. Calvarium: Unremarkable. Cervical cord: Partially visualized cervical spinal cord is normal in morphology and signal intensity . IMPRESSION: No acute intracranial abnormality. ACT 112: Negative or not required by law. Electronically signed by: Alex Clifton M.D. 08/12/2025 9:30 AM
[2025-08-12] MEDS: ONDANSETRON INJ 2 MG/ML 2 ML VIAL IV PRN (11:08)
--- NOTE | 2025-08-12 16:01 | XCELERA ---
[id number] \\[id number]
--- NOTE | 2025-08-12 16:48 | Neurology Consultation ---
Date of Consultation August 12, 2025 Assessment & Plan (1) Right sided weakness: (2) Cervicalgia: (3) Headache: (4) Complicated migraine: Plan 34-year-old female with acute onset right sided neck pain, posterior headache, right upper extremity pain, paresthesias of the fingers of the right hand and right toe, weakness of the right arm and leg and word finding difficulty. Her symptoms have considerably improved. However, she continues to report right sided neck pain, posterior headache, and has mild giveaway weakness for the right arm and leg. She does not have an associated facial droop and does not have an aphasia at this time. I have recommended a cervical spine MRI to exclude a cervical disc herniation and possible associated radiculomyelopathy. She does not have any definitive upper motor neuron signs on examination, however, that would suggest spinal cord compression or compromise. I have also ordered a Lyme screen, hypercoagulable panel, MICHELLE screen, ANCA, ESR, CRP, vitamin B12. Although her brain MRI is negative for any evidence of stroke or cerebrovascular disease, I think it would be reasonable to start aspirin 81 mg/day, at least for the time being, given the possibility of a hypercoagulable state or antiphospholipid antibody syndrome. If the above lab panel is unremarkable, could discontinue aspirin. Further, given the possibility that her symptoms are due to complicated migraine, would recommend starting verapamil ER 120 mg at bedtime. I will advise further pending completion of her cervical spine MRI. Consultations with PT/OT. Please call with any questions. History of Present Illness Reason for Consultation: Right sided weakness Requesting Physician: Geraldine Attending Physician: Luis Chandler MD History of Present Illness The patient is a 34-year-old right handed female with a chief complaint of right sided neck pain radiating into the upper limb, associated paresthesias of the fingers of the right hand and toes of the right foot, associated chest pain, and posterior headache, beginning acutely last night while driving into work. 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 She had some associated difficulty with word finding as well. Her symptoms have significantly improved although she continues to have low-grade posterior headache as well as mild to moderate right sided neck pain. She also continues to have mild weakness for the right arm and leg. She does not recall ever having a similar episode of weakness or word finding difficulty in the past. She has had some intermittent right upper extremity pain that she had been attributing to moving a patient possibly. She does recall having an episode of migrainous aura in the past but does not experience migraine very frequently. She has no known history of blood clots but does report having 1 miscarriage. She has 4 grown children at home. She denies any other significant active health issues at this time. She does not recall any recent illness or infection, no recent tick bite. She did have a normal CTA of the head and neck as well as an unremarkable brain MRI. I independently reviewed these images. No evidence of acute or subacute stroke, no chronic microhemorrhage, no Chiari malformation, hydrocephalus, or parenchymal signal abnormality. No abnormal postcontrast enhancement. She had an echocardiogram completed this afternoon that was unremarkable, no embolic source identified, normal ejection fraction, normal atrial size, no interatrial shunt, no valvular disease. Electrocardiogram indicated a normal sinus rhythm, 71 bpm. CBC reviewed, no leukocytosis, she does have a mild microcytic anemia, platelet count normal. She was mildly hypokalemic at the time of presentation, normal blood glucose, calcium, and magnesium. Iron studies are low. Lipid panel normal. hCG negative. Urine toxicology screen negative, testing for SARS-CoV-2, influenza, and RSV negative. Allergies Allergy/AdvReac Type Severity Reaction Status Date / Time metoclopramide [From Reglan] AdvReac Intermediate HYPERACTIVE Verified 08/11/25 22:34 Home Medications Medication Instructions Recorded Confirmed Type atomoxetine 40 mg capsule 40 mg PO DAILY 08/11/25 08/11/25 History Patient History Medical History No pertinent family history No pertinent past medical history Surgical History No pertinent past surgical history Social History Smoking Status: Current every day smoker Tobacco Type: Cigarettes Cigarettes Per Day: 1/2 pack week; Second Hand Exposure: No; Do You Dip or Chew Tobacco: No; Hx Alcohol Use: No Hx Substance Use: No Preferred Language: [place] Communication Ability: Effective Dental Patient Coordinator Required: No Beliefs That Will Affect Care: None Current Living Situation: Spouse Feels Safe at Home: Yes Assistive Devices: None Review of Systems Constitutional: no fever and no chills Eyes: no blind spots, no diplopia and no eye pain Ear, Nose, Mouth, Throat: no hearing loss Respiratory: no cough and no dyspnea Cardiovascular: as per Subjective / HPI and + chest pain; no palpitations Gastrointestinal: + nausea; no vomiting Genitourinary: no urinary incontinence Musculoskeletal: + neck pain; no myalgia Integumentary: no rash Neurologic: as per Subjective / HPI Psychiatric: no depression and no anxiety Hematologic / Lymphatic: no easy bleeding and no easy bruising Exam (Neuro) Constitutional: well developed and well nourished; no acute distress Eyes: normal visual virgen by confrontation, PERRL and EOM intact bilaterally; no nystagmus Neurologic: Oriented to:: Person, Place and Time Memory: Short Term Intact and Remote Intact Attention: Span Intact and Concentration Intact Speech Fluency: negative Dysarthria or Dysfluency Speech Aphasia: negative Aphasia Fund of Knowledge: Current Events, Past History and Vocabulary Cranial Nerves: Normal II, III, IV, , V, VII, VIII, IX, X, XI and XII Motor Strength: negative Normal Lower Extremities or Normal Upper Extremities Motor Tone: Normal Lower Extremities and Normal Upper Extremities Muscle Bulk/Involuntary Movements: No Involuntary Movements; negative Muscle Atrophy Sensation: Light Touch Intact, Pain/Temperature Intact and Proprioception Intact Coordination: negative Dysdiadochokinesia, Finger-Nose Abnormal or Heel-Truong Abnormal Deep Tendon Reflexes: Rt Triceps: 2+, Lt Triceps: 2+, Rt Biceps: 2+, Lt Biceps: 2+, Rt Brachioradialis: 2+, Lt Brachioradialis: 2+, Rt Patellar: 2+, Lt Patellar: 2+, Rt Ankle: 2+ and Lt Ankle: 2+ Special Tests: negative Babinski Present Details: Patient is mildly photosensitive, no nuchal rigidity, no facial droop, she has mild giveway weakness for the right arm and leg proximally and distally, no fix with arm roll, normal facility of fine finger movements. Results & Data Vital Signs (Past 12 Hours) Vital Signs Temp Pulse Pulse Resp BP Pulse Ox O2 Del Method 08/12/25 15:29 37.1 C 67 18 111/75 94 Room Air 08/12/25 14:58 66 08/12/25 11:10 36.7 C 67 18 112/77 98 Room Air 08/12/25 07:50 36.9 C 63 18 111/72 99 Room Air 08/12/25 07:23 59 L Laboratory Results WBC 8.36, hemoglobin 11.5, MCV 76.5, platelet count 346, sodium 141, potassium 4.0 (was 3.2), creatinine 0.82, glucose 93, hemoglobin A1c 5.3, calcium 8.6, magnesium 2.0, ferritin 2.4, triglycerides 50, cholesterol 166, LDL 115, HDL 41 Coding Level of Care Code 02559 INT INP/OBS CARE 3/75MIN Diagnoses Right sided weakness R53.1 Cervicalgia M54.2 Headache R51.9 Complicated migraine G43.109 Time Spent (min) 75 Comment Total time includes patient contact, chart review, counseling, note preparation
[2025-08-12] MEDS: ACETAMINOPHEN 325 MG TAB PO PRN (17:46)
--- NOTE | 2025-08-12 18:10 | Hospitalist Progress Note ---
Date of Service August 12, 2025 Assessment & Plan (1) Brain TIA: (2) No pertinent family history: (3) No pertinent past medical history: (4) Right sided weakness: (5) Heartburn: Plan #Right sided weakness/ TIA/ Stroke like symptoms: -Ongoing right sided weakness although inconsistent exam, therefore will normal MRI brain would recommend neurology consult to consider MR cervical spine and possibly MRV prior to calling this functional neurological disorder or any additional imaging they would recommend -TTE ordered as part of stroke/TIA workup but ongoing symptoms and normal brain MRI is reassuring this is not the case Consult neurology PT/OT ordered given significant weakness of right lower extremity #ADHD: -Not yet started on Strattera as outpatient, recommend holding off to not complicate her clinical picture Admission and Anticipated Discharge Date Admission Date: August 12, 2025 Subjective Ongoing right sided pressure, non pulsating headache with right sided weakness. Headache appears to come from her neck. Physical Exam Constitutional: WD/WN, vitals as above Respiratory: normal respiratory effort, lungs clear to auscultation Cardiovascular: RRR, no murmur, no edema Gastrointestinal (Abdomen): normal bowel sounds, soft, nontender, no hepatosplenomegaly Neurologic: awake 3/5 right hip flexion, 4/5 right ankle p lantar/dorsiflexion (although intermittently appears to have power in ankles), elbow flex/extension 5/5 b/l, right finger flexion intermittently weak but initially 5/5, thumb extension 5/5, mild pronator drift on right arm, normal sensation of extremities CN2-> 12 intact Results & Data Results & Data Vital Signs (Past 12 Hours) Vital Signs Temp Pulse Pulse Resp BP Pulse Ox O2 Del Method 08/12/25 15:29 37.1 C 67 18 111/75 94 Room Air 08/12/25 14:58 66 08/12/25 11:10 36.7 C 67 18 112/77 98 Room Air 08/12/25 07:50 36.9 C 63 18 111/72 99 Room Air 08/12/25 07:23 59 L PG Care Time/CCT Total # of Minutes Spent Total Time Spent with Patient: Total time spent is greater than 50% in coordination of care (as documented) at patient's floor/unit and/or counseling patient: Coding Level of Care Code 33270 SUB INP/OBS CARE 2/35MIN Diagnoses Brain TIA G45.9 No pertinent family history Z78.9 No pertinent past medical history Z78.9 Right sided weakness R53.1 Heartburn R12
[2025-08-12] MEDS: GADOBUTROL 30ML VIAL IV ONE (21:01)
[2025-08-12] MEDS: VERAPAMIL HCL 120 MG TABCR PO SCH (21:38)
--- NOTE | 2025-08-12 23:44 | Magnetic Resonance Report ---
Exam(s): MRV HEAD EXAM: MR Venography Head Without Intravenous Contrast CLINICAL HISTORY: Reason for exam: headache, weakness. TECHNIQUE: Magnetic resonance venography images of the head without intravenous contrast. COMPARISON: Same-day MRA.. FINDINGS: Superior sagittal sinus: Unremarkable. Patent. Straight sinus: Unremarkable. Patent. Transverse sinuses: Unremarkable. Patent. Sigmoid sinuses: Unremarkable. Patent. Internal jugular veins: Unremarkable as visualized. Internal cerebral and cortical veins: Unremarkable as visualized. IMPRESSION: Normal head/brain MRV. Electronically signed by: Mauri Ring MD 08/12/25 23:43 PM
--- NOTE | 2025-08-12 23:49 | Magnetic Resonance Report ---
Exam(s): MRI C SPINE IV Amt: 7.3cc gadavist inj. left iv at 2058 hrs. EXAM: MR Cervical Spine With Intravenous Contrast CLINICAL HISTORY: Reason for exam: right sided weakness and neck pain. TECHNIQUE: Magnetic resonance images of the cervical spine with intravenous contrast in multiple planes. CONTRAST: Patient received 7.3cc gadavist inj. left iv at 2058 hrs., of IV contrast COMPARISON: CTA neck 08/11/2025 FINDINGS: Vertebrae: Unremarkable. No acute fracture. Spinal cord: Unremarkable. Normal signal. No abnormal enhancement. Soft tissues: Unremarkable. DISCS/SPINAL CANAL/NEURAL FORAMINA: C2-C3: Unremarkable. No significant disc disease. No stenosis. C3-C4: Unremarkable. No significant disc disease. No stenosis. C4-C5: Unremarkable. No significant disc disease. No stenosis. C5-C6: Unremarkable. No significant disc disease. No stenosis. C6-C7: Unremarkable. No significant disc disease. No stenosis. C7-T1: Unremarkable. No significant disc disease. No stenosis. IMPRESSION: No acute abnormality. Electronically signed by: Mauri Ring MD 08/12/25 23:48 PM
[2025-08-13] MEDS: ASPIRIN 81 MG ECTAB PO SCH (08:05)
[2025-08-13 08:40] LABS: Hematocrit (blood only) 34.3 % (37.0-47.0); Hemoglobin 10.5 g/dl (12.0-16.0); Immature Granulocytes # (auto) 0.02 K/uL (0.01-0.20); Immature Granulocytes % (auto) 0.3 %; Mean Corpuscular Hemoglobin 23.8 pg (25.0-34.0); Mean Corpuscular Volume 77.6 fL (80.0-100.0); Platelet Count 321 K/uL (130-400); RDW Standard Deviation 44.0 fL (36.4-46.3); Red Blood Count 4.42 M/uL (4.20-5.40); White Blood Count 7.09 K/ul (4.8-10.8)
[2025-08-13 08:55] LABS: Anion Gap 4.0 (3-11); Blood Urea Nitrogen 15.0 mg/dl (6-23); Calcium 8.2 mg/dl (8.6-10.3); Carbon Dioxide 25.0 mmol/L (21-32); Chloride 109.0 mmol/L (98-107); Creatinine Clr Calc Pharmacy 103.3 ml/min; Glucose 91.0 mg/dl (70-99(Fasting)); Potassium 3.9 mmol/L (3.5-5.1); Sodium 138.0 mmol/L (136-145)
[2025-08-13 11:48] VITALS: RESP 14; TEMP 97.7; O2SAT 98
[2025-08-13] MEDS ORDERED: STROKE PATIENT DISCHARGE STA (12:22)
--- NOTE | 2025-08-13 12:24 | Discharge Summary ---
Discharge Summary Date of Service August 13, 2025 Principal Dx & Hospital Course #1 = Principal Diagnosis (1) Brain TIA: (2) No pertinent family history: (3) No pertinent past medical history: (4) Right sided weakness: (5) Heartburn: Maurice Inna Coley is a 34 year old female admitted to [facility] from August 11 - 2024 due to right sided weakness and headache. MRI cervical spine, MRI brain, MVR brain and CT head did not show a cause of her symptoms. Symptoms suddenly improved on morning of day of discharge and currently she is now back to her baseline. She was seen by neurology and recommended taking a daily aspirin up until hypercoagulable workup is complete and follow up in the office. Differential on discharge includes complex migraine vs. functional neurological syndrome. She will follow up with neurology as an outpatient for ongoing investigations of this. She was also incidentally noted to have iron deficiency anemia with hemoglobin 10.5, ferritin 2.4, transferrin saturation 11%. She reports symptoms of fatigue and restless leg syndrome possibly related to this. Most likely due to her heavy periods but recommended also discussing upper endoscopy and colonoscopy with her PCP. Due to prior intolerance to iron tablets and degree of iron deficiency with significant symptoms likely attributable to this; we started iron transfusion in the hospital with Venofer (iron sucrose) 300mg. Total iron deficiency using the Ganzoni equation is approximately 760mg therefore recommend further transfusions are arranged through PCP to address this. Also advised started ferrous sulfate every other day to minimize constipation side effect. She was also diagnosed with gastroesophageal reflux treated with pantoprazole during her hospitalization. This was prescribed just as needed on discharge and should be monitor by her PCP. Notes For Next Care Provider PCP to arrange ongoing iron transfusions - consider extra 500mg of Venofer or equivalent per Ganzoni equation as above PCP to monitor GERD symptoms Follow up neurology for episodic right sided weakness and hypercoagulable workup Medication Changes From Visit Aspirin until hypercoagulable workup complete Pantoprazole PRN for GERD Ferrous sulfate for iron def. anemia Admission HPI Per Admitting Provider 34 yrs old female with PMH of adhd presents to the ED with complaints of Rt sided bosy pain and heaviness since this morning after she woke up. She started feeling weak and heavy on the right side of her body along with the pain. Reports being foggy, tired and had hard time opening both of her eyes. She also reports having heartburn on the left side of chest along with nausea. She drove herself to the hospital after her weakness and pain kept getting increased. Also couldn't process what she was trying to say at one time.She reported feeling very exhausted on presentation but could walk to the bathroom with decreased ability to focus. No known family history because she was adopted. No H/o chest pain, trauma, abnormal body movement, migraines hx, recent illness. Discharge Exam Constitutional WD/WN, vitals as above Respiratory normal respiratory effort, lungs clear to auscultation Cardiovascular RRR, no murmur, no edema Gastrointestinal (Abdomen) normal bowel sounds, soft, nontender, no hepatosplenomegaly Neurologic CN's II-XI intact bilaterally, moves all extremities and awake; no focal motor deficits Speech / Cognition: normal speech Discharge Plan Discharge Items Patient Disposition: Home - Self-Care Reason For Visit: RIGHT SIDED WEAKNESS Discharge Diagnosis: Right sided weakness Condition on Discharge: Fair Activity: Resume your previous activity Non-emergency contact: Neurologist Call non-emergency contact if: you have any medication questions and your symptoms worsen Follow-up/Referrals: Franck Frazier MD [Physician] - (Follow up right sided weakness) PCP,NO [Primary Care Provider] - Diet: Regular Addtl Attending Provider Instructions: You were admitted to [facility] from August 11 - 2024 due to right sided weakness and headache. Imaging at this time was negative for stroke, brain or cervical spine cause. You were seen by neurology and recommended taking a daily aspirin up until hypercoagulable workup is complete and follow up in the office. Possibility of what caused this include complex migraine vs. functional neurological syndrome. Please follow up with neurology as an outpatient for ongoing investigations of this. You were also incidentally noted to have iron deficiency anemia with hemoglobin 10.5, ferritin 2.4, transferrin saturation 11%. Most likely this is due to your heavy periods but recommend also discussing endoscopy and colonoscopy with your family physician. Due to prior intolerance to iron tablets and degree of iron deficiency with significant symptoms likely attributable to this; we started iron transfusion in the hospital with Venofer (iron sucrose) 300mg. Your total iron deficiency using the Ganzoni equation is approximately 760mg therefore recommend further transfusions are arranged through your family physician. Please also start ferrous sulfate just every other day to dry and minimize constipation side effect. You were also diagnosed with gastroesophageal reflux treated with pantoprazole. Recommend taking this as needed and following up with your family physician for management of this. Pending Studies at Discharge: Yes (hypercoagulable workup) Stand-Alone Forms: My [facility], Smoking Cessation Medications and DC Order Prescriptions: New aspirin [Enteric Coated Aspirin] 81 mg tablet,delayed release (DR/EC) 81 mg PO DAILY Qty: 30 0RF pantoprazole 40 mg tablet,delayed release (DR/EC) 40 mg PO DAILY PRN (Reason: reflux) Qty: 30 0RF ferrous sulfate 325 mg (65 mg iron) tablet,delayed release (DR/EC) 325 mg PO Q OTHER DAY Qty: 90 0RF Continued atomoxetine 40 mg Capsule 40 mg PO DAILY Rx Instructions: PER PT'S SO "JUST GOT TODAY, DID NOT START TAKING". Discharge Orders: Discharge Order (Routine); Ordered 08/13/25 Ordered By: Luis Chandler Admission Data Admit Date/Time: 08/12/25 00:14 Attending Provider: Luis Chandlre Admit Provider: Carol Britt Primary Care Provider: PCP,NO Other Providers: Margaret Goldstein; Franck Frazier Other Interventions: Discharge Summary Assessment (RN) Last Done: 08/13/25 13:34 Hospital Stay Data Consultations 08/11/25 22:26 ED Decision to Admit Stat 08/12/25 09:26 Consult Neurology Routine Diagnostic Imagining Performed 08/11/25 21:22 CT angio head w con Stat CT angio neck with con Stat CT head/brain wo con Stat 08/12/25 02:14 MR brain wo/w con Routine 08/12/25 16:48 MR cervical spine wo/w con Routine 08/12/25 17:13 MRI venography head [MR venography head wo con] Routine Pending Results Patient Have Any Pending Studies at Discharge: Yes (hypercoagulable workup) Discharge Instructions Given to Patient (Per Discharging Provider) You were admitted to [facility] from August 11 - 2024 due to right sided weakness and headache. Imaging at this time was negative for stroke, brain or cervical spine cause. You were seen by neurology and recommended taking a daily aspirin up until hypercoagulable workup is complete and follow up in the office. Possibility of what caused this include complex migraine vs. functional neurological syndrome. Please follow up with neurology as an outpatient for ongoing investigations of this. You were also incidentally noted to have iron deficiency anemia with hemoglobin 10.5, ferritin 2.4, transferrin saturation 11%. Most likely this is due to your heavy periods but recommend also discussing endoscopy and colonoscopy with your family physician. Due to prior intolerance to iron tablets and degree of iron deficiency with significant symptoms likely attributable to this; we started iron transfusion in the hospital with Venofer (iron sucrose) 300mg. Your total iron deficiency using the Ganzoni equation is approximately 760mg therefore recommend further transfusions are arranged through your family physician. Please also start ferrous sulfate just every other day to dry and minimize constipation side effect. You were also diagnosed with gastroesophageal reflux treated with pantoprazole. Recommend taking this as needed and following up with your family physician for management of this. Total Time Total Time Spent Total Time Spent (In Minutes): 45 Coding Level of Care Code 38045 INP/OBS DISCH >30 MIN Diagnoses Brain TIA G45.9 No pertinent family history Z78.9 No pertinent past medical history Z78.9 Right sided weakness R53.1 Heartburn R12
[2025-08-13] MEDS: IRON SUCROSE 300 MG in SODIUM CHLORIDE 0.9% 250 ML IV ONE (12:51)
[2025-08-13 13:38] VITALS: BP 85/52; PULSE 70
--- NOTE | 2025-08-15 10:04 | Coding Query ---
CODING QUERY To promote full compliance with coding requirements relating to patient care, provider participation is requested in all cases of elevating grader operator uncertainty. Please assist us with the question(s) below: Coding Question(s): TIA is documented in the record and on the Discharge Summary, there is documentation of Brain TIA, and the Discharge Summary then documents, under Plan, "Differential on discharge includes complex migraine vs. functional neurological syndrome". It is not clear if Brain TIA was felt to be the most likely diagnosis, or if the most likely diagnosis was complex migraine vs functional neurological syndrome, that was most responsible for occasioning the admission. Please specify below, in your clinical opinion, the diagnosis most responsible: ( ) Brain TIA ( ) Brain TIA and equally Complex Migraine vs functional neurological syndrome ( X) Complex Migraine vs functional neurological syndrome, but TIA is still a possible diagnosis ( ) Complex Migraine vs functional neurological syndrome. TIA is Ruled-Out ( ) Other: Please Specify Physician's Response(s): Thank you Matilde Lucero Principal Diagnosis: "that condition established after study, to be chiefly responsible for occasioning the admission of the patient to the hospital for care." Co-Existing Principal Diagnosis: "when two or more diagnoses equally meet the criteria for principal diagnosis as determined by the circumstances of admission, diagnostic work up, and/or therapy provided, and the Alphabetic Index, Tabular List, or another coding guideline does not provide sequencing direction, any one of the diagnoses may be sequenced first." "When the physician has documented what appears to be a current diagnosis in the body of the record, but has not included the diagnosis in the final diagnostic statement, the physician should be asked whether the diagnosis should be added." (Source Coding Clinic 2 QTR90. p3-4) [email or web address]
== END 2025-08-13 14:44 | disposition home or self-care (01) | DRG 103 ==
LOC: ED 20:54 → 2N 08-12 00:14 → SUATTDRO 08-12 00:14 → 2N 08-12 01:38